=== PATIENT | female | born 1980 | race Caucasian/White ===

== ENCOUNTER → 2019-01-03 20:48 | Outpatient (CLI) | payer OTHER, SELFPAY ==
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
== END ==
LOC: MRI 20:51
PROVIDERS: Family Provider Student in an Organized Health Care Education/Training Program; PCP Student in an Organized Health Care Education/Training Program; Visit Provider Student in an Organized Health Care Education/Training Program
DX: S19.9XXA Unspecified injury of neck, initial encounter (principal); M47.812 Spondylosis without myelopathy or radiculopathy, cervical region; M48.02 Spinal stenosis, cervical region; R20.2 Paresthesia of skin; M79.602 Pain in left arm; M79.601 Pain in right arm
CPT/HCPCS: 72141

== ENCOUNTER → 2019-01-06 08:00 | Outpatient (CLI) | payer OTHER, SELFPAY ==
[2019-01-06 09:01] LABS: Add Manual Diff / Slide Review NO; Basophils Absolute Auto 0 /uL (0-100); Basophils Percent Auto 0.3 % (0-2); Eosinophils Absolute Auto 300 /uL (0-450); Eosinophils Percent Auto 5.2 % (2-4); Hematocrit 41.6 % (36-46); Hemoglobin 14.2 g/dL (12.0-16.0); Lymphocytes Absolute Auto 1700 /uL (1100-4500); Lymphocytes Percent Auto 27.2 % (25-40); Mean Corpuscular Hemoglobin 30.3 PG (26-34); Mean Corpuscular Volume 88.9 fL (80-100); Monocytes Absolute Auto 600 /uL (0-900); Monocytes Percent Auto 9.2 % (3-14); Neutrophils Absolute Auto 3600 /uL (1500-7000); Neutrophils Percent Auto 58.1 % (50-75); Platelet Count 215 X10^3/uL (150-400); Red Blood Cell Count 4.68 X10^6/uL (4.0-5.2); Red Cell Distribution Width 13.4 % (11.6-14.8); White Blood Cell Count 6.2 X10^3/uL (4.5-11.0)
[2019-01-06 09:19] LABS: Erythrocyte Sedimentation Rate 6 MM/HR (0-20)
[2019-01-06 09:35] LABS: Alanine Aminotransferase 28 IU/L (9-52); Albumin 4.6 g/dL (3.5-5.0); Albumin Globulin Ratio 1.5 (1.0-2.8); Alkaline Phosphatase 41 U/L (38-126); Aspartate Aminotransferase 26 IU/L (14-36); Bilirubin Total 0.4 mg/dL (0.2-1.3); Blood Urea Nitrogen 14 mg/dL (7-17); Calcium 9.1 mg/dL (8.4-10.2); Carbon Dioxide 26 mmol/L (22-32); Chloride 102 mmol/L (98-107); Cholesterol 175 mg/dL (140-199); Estimated Glomerular Filt Rate > 60.0 mL/min (>60); Glucose 119 mg/dL (70-100); HDL Cholesterol 76 mg/dL (40-60); HEMOLYSIS < 15 (0-50); LDL Cholesterol Calculated 80 mg/dL (<100); Potassium 4.2 mmol/L (3.4-5.1); Sodium 138 mmol/L (137-145); Total Protein 7.6 g/dL (6.3-8.2); Triglycerides 95 mg/dL (35-150)
[2019-01-06 10:19] LABS: Vitamin B12 793 pg/mL (239-931)
[2019-01-06 10:21] LABS: Vitamin D 25 Hydroxy (D3) 36.1 ng/mL (30.0-100.0)
[2019-01-06 10:38] LABS: Thyroid Stimulating Hormone 1.83 uIU/mL (0.47-4.68)
[2019-01-08 20:08] LABS: ANA Screen, IFA Negative (Negative)
== END ==
PROVIDERS: PCP Student in an Organized Health Care Education/Training Program; Visit Provider Student in an Organized Health Care Education/Training Program
DX: F41.9 Anxiety disorder, unspecified (principal); I73.00 Raynaud's syndrome without gangrene; R20.2 Paresthesia of skin; R68.89 Other general symptoms and signs; E55.9 Vitamin D deficiency, unspecified; Z13.220 Encounter for screening for lipoid disorders
CPT/HCPCS: 36415; 80053; 80061; 82306; 82607; 84439; 84443; 84481; 85025; 85651; 86038; 86235; 86880

== ENCOUNTER 2019-03-10 06:42 | Day surgery (SDC) | payer OTHER, SELFPAY ==
[2019-03-09 07:46] VITALS: BMI 22.5
--- NOTE | 2019-03-10 06:45 | PM.GYNOP.1 ---
Operative Date/Time/Diagnoses Date of procedure: 03/10/19 Time of procedure: 09:15 Pre-op diagnosis: Retained piece of ParaGard IUD Post-op diagnosis: same Procedure: Procedures Operation Date: 03/10/19 07:45 <No data on this case meets the specified criteria> Indications: Retained piece of ParaGard IUD Two failed attempts to remove piece of IUD in the office Surgeon: Elida Okeefe Anesthesia Type: General (LMA) Operative Notes Findings: One arm of the ParaGard IUD was imbedded in the left cervical wall approximately 2.5 cm from the cervical os. Both fallopian tube ostia were observed hysteroscopic Coni. Closure Type: not applicable Specimen(s): other (1 cm portion of ParaGard IUD) Estimated blood loss (mL): 10 Blood products transfused: none Procedure in detail: After informed consent was obtained, the patient was taken to the operating room where she was placed in the dorsal supine position. After adequate LMA general anesthesia was achieved, she was placed in the dorsal lithotomy position, and prepped and draped in the usual sterile fashion. A time-out was performed. A bivalve speculum was placed into the vagina and the anterior lip of the cervix grasped with a single-tooth tenaculum. The cervical os was sequentially dilated to the # 8 Hegar dilator. The hysteroscope passed into the endometrial cavity. Both fallopian tube ostia were observed. Upon pulling the hysteroscope back through the cervix, a portion of the ParaGard IUD was visible sticking out of the left cervical wall, approximately 2-1/2 cm from the cervical os. The hysteroscope was removed. An attempt was made to grasp the portion of the IUD with a polyp forceps and a grasper. These were unsuccessful. Using the operative hysteroscope, an attempt was made to grasp the portion of the IUD protruding from the left cervical wall and this was also unsuccessful. Using the resectoscope with a loop, cautery was applied to the plastic portion of the IUD that was protruding from the cervical wall, with an attempt to remove that portion. A section of the arm of the IUD was transected and removed through the hysteroscope. Using the hysteroscope with cautery settings and the loop the area where the arm had protruded was excised and the remaining portion of the ParaGard IUD arm was then floating in the endometrial cavity. The hysteroscope was removed. Using a polyp forceps the portion of the arm of the ParaGard IUD was then grasped and removed from the uterus. The hysteroscope passed easily into the endometrial cavity and there were no pieces of the IUD remaining. The instruments were removed from the uterus. The single-tooth tenaculum was removed from the anterior lip of the cervix. There was found to be a small amount of bleeding from the anterior lip of the cervix. A [id number] suture with 2 0 chromic was placed for hemostasis. At some point the single-tooth tenaculum had been placed on the posterior lip of the cervix, and this was also bleeding slightly. A nnekto-in-gaezn suture was placed into the posterior lip of the cervix with 2 0 chromic for hemostasis. Sponge, lap, and instrument counts were correct x2. The patient tolerated the procedure well, and was taken to PACU in stable condition. Complications: none Post-operative Condition: stable Disposition: PACU Plan for aftercare: Home after recovery
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
[2019-03-10 07:21] VITALS: BP 106/65; PULSE 56; RESP 15; TEMP 36.6; O2SAT 99; BMI 22.5
--- NOTE | 2019-03-10 07:23 | PM.PREOP ---
Pre-operative Note Interval Note History & Physical reviewed/Exam performed by Physician: Yes Changes to H&P: No
[2019-03-10] MEDS: LACTATED RINGERS 1,000 ML 100 ML IV (07:30)
--- NOTE | 2019-03-10 07:37 | SUR.OPER ---
Lithotomy on padded OR bed, head on pillow, arms secured on padded arm boards at <90 degrees abduction. Legs secured in padded yellow fins stirrups.
[2019-03-10] MEDS: CEFAZOLIN 2 GM/100 ML FROZ.PIGGY IV (07:43)
[2019-03-10 09:40] VITALS: BP 117/75; PULSE 57; RESP 15; O2SAT 94
[2019-03-10 09:45] VITALS: BP 132/78; PULSE 58; RESP 17; O2SAT 97
[2019-03-10 09:50] VITALS: BP 119/84; PULSE 66; RESP 13; O2SAT 97
[2019-03-10 09:55] VITALS: BP 118/78; PULSE 61; RESP 24; TEMP 36.8; O2SAT 97
[2019-03-10] MEDS: OXYCODONE/ACETAMINOPHEN 5/325 TABLET 1 TAB PO (10:04)
[2019-03-10 10:16] VITALS: BP 136/77; PULSE 58; RESP 12; TEMP 36.2; O2SAT 98
== END 2019-03-10 10:26 | disposition home or self-care (01) ==
PROVIDERS: PCP Student in an Organized Health Care Education/Training Program; Visit Provider Obstetrics & Gynecology
PROC: 0UDB8ZZ Extraction of Endometrium, Via Natural or Artificial Opening Endoscopic (ICD-10-PCS; CPT 58558; principal; 2019-03-10 07:45)
PROC: (CPT 58562; 2019-03-10 07:45)
DX: T83.32XA Displacement of intrauterine contraceptive device, initial encounter (principal); F41.9 Anxiety disorder, unspecified; F32.9 Major depressive disorder, single episode, unspecified
CPT/HCPCS: 58562; J0690; J1100; J1885; J2405; J2704; J3010

== ENCOUNTER → 2019-04-10 18:58 | Outpatient (CLI) | payer OTHER, SELFPAY ==
--- NOTE | 2019-04-10 | DI.MRI.S_ITS ---
PROCEDURE: MR HEAD/BRAIN WO CON INDICATIONS: PARESTHESIA OF SKIN TECHNIQUE: Noncontrast axial T1 spin echo, axial T2 fast spin echo, sagittal and axial FLAIR, coronal T2 fast spin echo, axial gradient echo, axial diffusion and ADC through the brain. COMPARISON: [facility], CT, HEAD WITHOUT CONTRAST, 07/06/2016, 15:10. FINDINGS: Image quality: Excellent. CSF Spaces: Basal cisterns are patent. No extra-axial fluid collections. Ventricles are normal in size and shape. Brain: No intracranial masses or hemorrhage. Figueredo/white matter interface is normal. Brainstem appears normal. Diffusion-weighted images demonstrate no acute ischemic insult. No chronic ischemic insults. Normal intravascular flow voids are present. Skull and face: Calvarium has normal marrow signal. Orbits appear normal. Sinuses: Sinuses and mastoids are clear. IMPRESSION: 1. No acute intracranial process. Dictated by: Tomasa Contreras M.D. on 04/11/2019 at 15:42 Approved by: Tomasa Contreras M.D. on 04/11/2019 at 15:44
== END ==
LOC: MRI 19:00
PROVIDERS: PCP Student in an Organized Health Care Education/Training Program; Visit Provider Psychiatry & Neurology Neurology
DX: R20.2 Paresthesia of skin (principal); R20.0 Anesthesia of skin; R26.81 Unsteadiness on feet; R41.89 Other symptoms and signs involving cognitive functions and awareness; R53.1 Weakness
CPT/HCPCS: 70551

== ENCOUNTER 2019-05-30 11:14 | Emergency (ER) | payer OTHER, SELFPAY ==
[2019-05-30 11:28] VITALS: BP 141/83; PULSE 60; RESP 18; TEMP 36.4; O2SAT 100
--- NOTE | 2019-05-30 11:36 | DI.RAD.S_ITS ---
PROCEDURE: XR FOOT LT MIN 3V INDICATIONS: running stairs and heard pop, pain dorsum below toes TECHNIQUE: 3 views of the foot were acquired. COMPARISON: None. FINDINGS: Bones: No fractures or dislocations. No suspicious bony lesions. Soft tissues: No tibiotalar joint effusion. Achilles tendon appears normal. IMPRESSION: No trauma found. Dictated by: Venu Chen M.D. on 05/30/2019 at 12:05 Approved by: Venu Chen M.D. on 05/30/2019 at 12:05
[2019-05-30] MEDS: ACETAMINOPHEN 325 MG TABLET 975 MG PO (11:38)
[2019-05-30] MEDS: IBUPROFEN 400 MG TABLET 800 MG PO (11:38)
[2019-05-30 11:41] VITALS: PULSE 60
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
--- NOTE | 2019-05-30 12:51 | PC.NURSE ---
pt refused ortho shoes
== END 2019-05-30 13:05 | disposition home or self-care (01) ==
PROVIDERS: Emergency Provider Nurse Practitioner Family; PCP Student in an Organized Health Care Education/Training Program
DX: S93.692A Other sprain of left foot, initial encounter (principal); Y93.02 Activity, running
CPT/HCPCS: 73630; 99282; 99283